=== PATIENT | male | born 1995 | race African-American/Black ===

== ENCOUNTER 2020-01-20 10:52 | Emergency (ER) | payer SELFPAY ==
[2020-01-20 11:45] LABS: Bilirubin Negative (Negative); Blood, Urine Negative (Negative); Clarity Clear (Clear); Glucose, Urine (Dipstick) Normal (Negative); Ketone, Urine Negative (Negative); Leukocyte Negative Leu/uL (Negative); Nitrite Negative (Negative); Protein, Urine (Dipstick) 10 mg/dL (Neg-Trace); Specific Gravity, Urine 1.027 (1.002-1.036); Urobilinogen Normal mg/dL (Less than 2)
--- NOTE | 2020-01-20 12:21 | ULT ---
Ultrasound scrotum with color and spectral Doppler imaging: HISTORY: Pain and swelling COMPARISON: None FINDINGS: Right testes:4.5 x 2.7 x 2.1 cm Left testes:4.6 x 3.2 x 2.3 cm Epididymal regions:Within normal limits. Hydrocele:None Scrotal wall:Within normal limits. Vascular duplex demonstrates arterial inflow and venous outflow. No evidence for testicular torsion. No evidence for intratesticular or extratesticular mass. Minimal prominent scrotal veins bilaterally possibly minimal varicocele changes. IMPRESSION: No intratesticular mass or testicular torsion. Probable mild varicocele changes.
[2020-01-22 20:58] LABS: Chlam.trachomatis by PCR,Urine Not Detected (NotDetected)
== END 2020-01-20 12:21 | disposition home or self-care (01) ==
LOC: ERS 10:52
DX: N45.1 Epididymitis (principal); F31.9 Bipolar disorder, unspecified; F17.210 Nicotine dependence, cigarettes, uncomplicated
CPT/HCPCS: 76870; 81003; 87086; 87491; 87591; 93976

== ENCOUNTER 2020-11-16 14:53 | Emergency (ER) | payer SELFPAY | END 2020-11-16 15:34 | disposition home or self-care (01) | LOC: ERS 14:53 | DX: S01.01XD Laceration without foreign body of scalp, subsequent encounter (principal); F17.210 Nicotine dependence, cigarettes, uncomplicated; X58.XXXD Exposure to other specified factors, subsequent encounter ==